=== PATIENT | female | born 1970 | race American Indian/Alaskan Native ===

== ENCOUNTER 2019-01-01 06:06 | Day surgery (SDC) | payer OTHER ==
[~2019-01-01] VITALS: Ht 160 cm; Wt 107.3 kg
[~2019-01-01 06:06] MED LIST: GABA600 PO; TRAM50 PO
--- NOTE | 2019-01-01 07:27 | NUR ---
01/01/[address] ORDERED ANCEF 2GM IVPB. SHE WAS NOTIFED THAT PT HAS AN ALLERGY TO P[N WHICH CAUSES HIVES. PER DR GARBER, CONTINUE USE WITH ANCEF.
== END 2019-01-01 09:13 | disposition home or self-care (01) ==
LOC: ORSCSDS 06:06
PROVIDERS: Orthopaedic Surgery
PROC: 01N54ZZ Release Median Nerve, Percutaneous Endoscopic Approach (ICD-10-PCS; principal; 2019-01-01 08:00)
DX: G56.02 Carpal tunnel syndrome, left upper limb (principal); E66.01 Morbid (severe) obesity due to excess calories; Z68.41 Body mass index [BMI] 40.0-44.9, adult
CPT/HCPCS: J0690; J2250; J3010; J7120

== ENCOUNTER 2019-09-16 07:01 | Day surgery (SDC) | payer OTHER ==
[~2019-09-16] VITALS: Ht 160 cm; Wt 105.4 kg
[2019-09-16] MEDS ORDERED: HYDCHL25 PO (07:56)
--- NOTE | 2019-09-16 08:05 | NUR ---
09/16/19 0805 [facility] CALL LIGHT WITHIN REACH. FAMILY AT BEDSIDE.
== END 2019-09-16 09:35 | disposition home or self-care (01) ==
LOC: ORSCSDS 07:01
PROVIDERS: Orthopaedic Surgery
PROC: 01N54ZZ Release Median Nerve, Percutaneous Endoscopic Approach (ICD-10-PCS; principal; 2019-09-16 08:45)
DX: G56.01 Carpal tunnel syndrome, right upper limb (principal); E66.9 Obesity, unspecified; Z68.41 Body mass index [BMI] 40.0-44.9, adult; Z79.899 Other long term (current) drug therapy
CPT/HCPCS: J0690; J2250; J2405; J7120

== ENCOUNTER 2020-04-07 15:26 | Emergency (ER) | payer OTHER ==
[~2020-04-07] VITALS: Ht 162.6 cm; Wt 106.1 kg
[~2020-04-07 15:26] MED LIST changes: +HYDCHL25 PO; +Macrobid 100 M100 MG PO; +OMEP20ER; +PROM25 PO; +Pyridium200 MG PO
[2020-04-07 16:19] LABS: BASOPHILS ABSOLUTE AUTO 0.03 K/mm3 (0.00-0.23); BASOPHILS PERCENT AUTO 0 % (0-2); EOSINOPHILS ABSOLUTE AUTO 0.09 K/mm3 (0.00-0.68); EOSINOPHILS PERCENT AUTO 1 % (0-6); Hematocrit 43.5 % (33.0-51.0); Hemoglobin 14.1 g/dL (11.5-16.0); IMMATURE GRAN ABSOLUTE AUTO 0.04 K/mm3 (0.00-0.10); IMMATURE GRAN PERCENT AUTO 0 % (0-1); LYMPHOCYTES PERCENT AUTO 30 % (21-46); MONOCYTES ABSOLUTE AUTO 1.13 K/mm3 (0.16-1.47); MONOCYTES PERCENT AUTO 8 % (4-13); Mean Corpuscular HGB 29.3 pg (26.0-34.0); Mean Corpuscular HGB Conc 32.4 g/dL (31.5-36.5); Mean Corpuscular Volume 90 fL (80-100); Mean Platelet Volume 9.3 fL (9.1-12.4); NEUTROPHILS ABSOLUTE AUTO 8.11 K/mm3 (1.96-9.15); NEUTROPHILS PERCENT AUTO 61 % (41-73); Platelet Count 294 K/mm3 (150-400); RDW Coefficient Variation 14.5 % (11.7-14.2); RDW Standard Deviation 48.5 fL (35.1-46.3); Red Blood Cell Count 4.82 M/mm3 (3.80-5.20)
[2020-04-07 16:39] LABS: Alanine Aminotransfer (ALT/SGP 29 U/L (12-78); Albumin/Globulin Ratio 0.5 (0.8-1.8); Alk Phos 279 U/L (50-136); Anion Gap 3 mmol/L (6-16); Aspartate Aminotrans (AST/SGOT 55 U/L (12-37); Bilirubin, Total 0.5 mg/dL (0.1-1.0); Blood Urea Nitrogen 4 mg/dL (8-24); CO2, Blood 28 mmol/L (21-32); Calcium, Blood 8.8 mg/dL (8.5-10.1); Chloride, Blood 107 mmol/L (98-108); Creatinine, Blood 0.57 mg/dL (0.40-1.00); Globulin, Blood 6.1 g/dL (2.2-4.0); Glomerular Filtration Rate >60 (60-); Glucose, Blood 84 mg/dL (70-99); Potassium, Blood 3.3 mmol/L (3.5-5.5); Sodium, Blood 138 mmol/L (136-145); Total Protein, Blood 9.1 g/dL (6.4-8.2)
== END 2020-04-07 20:48 | disposition home or self-care (01) ==
LOC: ER 15:26
PROVIDERS: Physician Assistant
DX: R10.33 Periumbilical pain (principal); G89.29 Other chronic pain; K21.9 Gastro-esophageal reflux disease without esophagitis; I10 Essential (primary) hypertension; E11.9 Type 2 diabetes mellitus without complications; Z87.440 Personal history of urinary (tract) infections; Z91.030 Bee allergy status; Z88.0 Allergy status to penicillin; Z79.899 Other long term (current) drug therapy
CPT/HCPCS: 36415; 80053; 83690; 85025; 96361; 96374; 96375; 99284-25; A9270; A9270-GY; J1200; J1630; J2405; J7030

== ENCOUNTER → 2020-05-11 | Outpatient (CLI) | payer OTHER | END | disposition home or self-care (01) | LOC: LAB 15:21 → LAB SHORT 15:21 | PROVIDERS: Obstetrics & Gynecology | DX: Z01.419 Encounter for gynecological examination (general) (routine) without abnormal findings (principal) | CPT/HCPCS: 87624; G0123 ==

== ENCOUNTER 2020-06-09 10:17 | Day surgery (SDC) | payer OTHER ==
[~2020-06-09] VITALS: Ht 162.6 cm; Wt 105.3 kg
[~2020-06-09 10:17] MED LIST changes: +CELE100 PO; +LISI10 PO; +METFORMIN HCL500 M2 PO; -OMEP20ER; +OMEP20ER PO
== END 2020-06-09 12:45 | disposition home or self-care (01) ==
LOC: ORSCSDS 10:17
PROVIDERS: Student in an Organized Health Care Education/Training Program
PROC: 0DBN8ZX Excision of Sigmoid Colon, Via Natural or Artificial Opening Endoscopic, Diagnostic (ICD-10-PCS; principal; 2020-06-09 12:00)
PROC: 0DB98ZX Excision of Duodenum, Via Natural or Artificial Opening Endoscopic, Diagnostic (ICD-10-PCS; principal; 2020-06-09 12:00)
PROC: 0DB68ZX Excision of Stomach, Via Natural or Artificial Opening Endoscopic, Diagnostic (ICD-10-PCS; principal; 2020-06-09 12:00)
DX: R10.13 Epigastric pain (principal); K29.50 Unspecified chronic gastritis without bleeding; B96.81 Helicobacter pylori [H. pylori] as the cause of diseases classified elsewhere; K76.6 Portal hypertension; K31.89 Other diseases of stomach and duodenum; K63.5 Polyp of colon; K64.8 Other hemorrhoids; K74.60 Unspecified cirrhosis of liver; K62.5 Hemorrhage of anus and rectum; E11.9 Type 2 diabetes mellitus without complications; Z79.84 Long term (current) use of oral hypoglycemic drugs; Z79.899 Other long term (current) drug therapy
CPT/HCPCS: 82947; 88305; 88342; J2704; J7040; J7120